=== PATIENT | female | born 1945 | race Two or more races ===

== ENCOUNTER 2020-10-14 14:53 | Emergency (ER) | payer OTHER ==
[~2020-10-14] VITALS: Ht 172.7 cm; Wt 93.0 kg
[2020-10-14] MEDS ORDERED: NORVASC2.5 M1 (15:26)
[2020-10-14] MEDS ORDERED: CARVEDILOL ER40 MG (15:26)
[2020-10-14] MEDS ORDERED: AVAPRO75 MG (15:26)
[2020-10-14] MEDS ORDERED: METFORMIN HCL500 M3 (15:27)
== END 2020-10-14 18:46 | disposition home or self-care (01) ==
LOC: ER 14:53
DX: K21.9 Gastro-esophageal reflux disease without esophagitis (principal); K44.9 Diaphragmatic hernia without obstruction or gangrene; R07.89 Other chest pain

== ENCOUNTER 2022-01-27 11:54 | Emergency (ER) | payer OTHER ==
[~2022-01-27] VITALS: Ht 172.7 cm; Wt 85.7 kg
[~2022-01-27 11:54] MED LIST: AVAPRO75 MG; CARVEDILOL ER40 MG; METFORMIN HCL500 M3; NORVASC2.5 M1
== END 2022-01-27 16:33 | disposition home or self-care (01) ==
LOC: ER 11:54
DX: K64.9 Unspecified hemorrhoids (principal); Z88.6 Allergy status to analgesic agent; Z88.1 Allergy status to other antibiotic agents

== ENCOUNTER 2022-02-28 05:40 | Day surgery (SDC) | payer OTHER ==
[~2022-02-28] VITALS: Ht 172.7 cm; Wt 83.9 kg
[2022-02-28] MEDS ORDERED: PERCOCET 5-3251 EACH PO (13:54)
== END 2022-02-28 19:45 | disposition home or self-care (01) ==
LOC: CIR.AMB 05:40
PROVIDERS: ATTEND Surgery
DX: K64.8 Other hemorrhoids (principal); Z88.8 Allergy status to other drugs, medicaments and biological substances; I10 Essential (primary) hypertension; K21.9 Gastro-esophageal reflux disease without esophagitis; E11.9 Type 2 diabetes mellitus without complications; L51.1 Stevens-Johnson syndrome

== ENCOUNTER → 2023-02-03 06:00 | Outpatient (CLI) | payer OTHER ==
[~2023-02-03] VITALS: Ht 172.7 cm; Wt 90.7 kg
[~2023-02-03 06:00] MED LIST changes: +ACID REDUCER20 M1 PO; +AMLODI PO; +CARVEDILOL25 M1 PO; +IRBESARTAN-HCT1 EAC1 PO; +PERCOCET 5-3251 EACH PO
== END | disposition home or self-care (01) ==
LOC: LAB 06:00 → SURH 02-07 09:45 → EDSTATUS 02-07 09:45 → SURH 02-07 13:00
PROVIDERS: ATTEND Surgery
DX: Z01.810 Encounter for preprocedural cardiovascular examination (principal); Z20.822 Contact with and (suspected) exposure to COVID-19; K57.30 Diverticulosis of large intestine without perforation or abscess without bleeding; R10.9 Unspecified abdominal pain; K62.5 Hemorrhage of anus and rectum; K64.2 Third degree hemorrhoids; R19.4 Change in bowel habit; K21.9 Gastro-esophageal reflux disease without esophagitis; K29.70 Gastritis, unspecified, without bleeding; R14.0 Abdominal distension (gaseous)

== ENCOUNTER 2023-04-08 08:47 | Inpatient (IN) | payer OTHER ==
[~2023-04-08] VITALS: Ht 172.7 cm; Wt 92.1 kg
[2023-04-09] MEDS ORDERED: GLUMETZA500 MG PO (09:45)
[2023-04-11] MEDS ORDERED: ROSUVASTATIN CA20 MG (08:09)
[2023-04-11] MEDS ORDERED: OMEPRAZOLE20 MG (08:09)
[2023-04-11] MEDS ORDERED: AMLODIPINE BESYL5 MG (08:09)
[2023-04-12 08:02] LABS: HEMATOCRIT 35.9 % (36.0-45.00); HEMOGLOBIN 12.2 g/dL (12.0-15.00); MEAN CELL VOLUME 91.6 fL (80.00-100.00); MEAN CORPUSCULAR HEMOGLOBIN 31.1 pg (27.00-32.0); PLATELET COUNT 186 K/uL (150-450); RED BLOOD COUNT 3.91 M/uL (4.00-6.00); RED CELL DISTRIBUTION WIDTH 13.9 % (11.5-14.5)
[2023-04-12 08:30] LABS: ALBUMIN 2.7 gm/dL (3.4-5.0); CALCIUM 8.3 mg/dL (8.5-10.1); CREATININE SERUM 0.88 mg/dL (0.55-1.02); GFR 62.47; MAGNESIUM 1.5 mg/dL (1.8-2.4); PHOSPHOROUS 2.9 mg/dL (2.5-4.9); POTASSIUM 3.31 mEq/L (3.5-5.1)
[2023-04-12 15:40] LABS: PH,URINE 5.5 (5.0-8.0); URINE APPEARANCE Clear; URINE BILIRRUBIN Negative (NEGATIVE); URINE BLOOD Negative; URINE COLOR Yellow; URINE GLUCOSE Negative (NEGATIVE); URINE LEUKOCYTE Negative; URINE NITRATE Negative; URINE PROTEIN 30 (NEGATIVE); URINE UROBILINOGEN 0.2 E.U./dl
[2023-04-12 15:44] LABS: URINE BACTERIA 14.5 uL (0.0-1933); URINE EPITHELIAL CELLS 19.1 uL (0.0-38.8); URINE WBC 14.4 uL (0.0-23.2)
[2023-04-12 16:11] LABS: URINE YEAST NEGATIVE /hpf
[2023-04-13 09:12] LABS: HEMATOCRIT 31.7 % (36.0-45.00); HEMOGLOBIN 10.8 g/dL (12.0-15.00); MEAN CELL VOLUME 91.6 fL (80.00-100.00); MEAN CORPUSCULAR HEMOGLOBIN 31.2 pg (27.00-32.0); PLATELET COUNT 143 K/uL (150-450); RED BLOOD COUNT 3.46 M/uL (4.00-6.00); RED CELL DISTRIBUTION WIDTH 14.1 % (11.5-14.5)
[2023-04-13 09:38] LABS: ALBUMIN 2.3 gm/dL (3.4-5.0); BILIRUBIN TOTAL 0.45 mg/dL (0.3-1.2); CALCIUM 8.4 mg/dL (8.5-10.1); CREATININE SERUM 0.7 mg/dL (0.55-1.02); GFR 81.36; GLOBULINA 2.6 G/DL (2.4-3.5); MAGNESIUM 2.1 mg/dL (1.8-2.4); POTASSIUM 3.19 mEq/L (3.5-5.1); TOTAL PROTEIN 4.9 gm/dL (6.4-8.2)
[2023-04-13 11:03] LABS: C-REACTIVE PROTEIN 32.6 MG/DL (0.00-0.29); PHOSPHOROUS 1.6 mg/dL (2.5-4.9)
[2023-04-14 16:18] LABS: CALCIUM 8.3 mg/dL (8.5-10.1); CREATININE SERUM 0.46 mg/dL (0.55-1.02); GFR 132.07; POTASSIUM 3.49 mEq/L (3.5-5.1)
[2023-04-15 08:01] LABS: ALBUMIN 2.2 gm/dL (3.4-5.0); BILIRUBIN TOTAL 0.39 mg/dL (0.3-1.2); CALCIUM 8.3 mg/dL (8.5-10.1); CREATININE SERUM 0.5 mg/dL (0.55-1.02); GFR 119.96; GLOBULINA 2.7 G/DL (2.4-3.5); POTASSIUM 3.55 mEq/L (3.5-5.1); TOTAL PROTEIN 4.9 gm/dL (6.4-8.2)
[2023-04-15 08:35] LABS: PHOSPHOROUS 1.2 mg/dL (2.5-4.9)
[2023-04-17 07:40] LABS: HEMATOCRIT 29.7 % (36.0-45.00); HEMOGLOBIN 9.6 g/dL (12.0-15.00); MEAN CELL VOLUME 92.5 fL (80.00-100.00); MEAN CORPUSCULAR HEMOGLOBIN 29.9 pg (27.00-32.0); MEAN CORPUSCULAR HGB CONC 32.4 g/dl (32.0-36.0); PLATELET COUNT 155 K/uL (150-450); RED BLOOD COUNT 3.22 M/uL (4.00-6.00); RED CELL DISTRIBUTION WIDTH 13.8 % (11.5-14.5)
[2023-04-17 08:11] LABS: CALCIUM 8.4 mg/dL (8.5-10.1); CREATININE SERUM 0.45 mg/dL (0.55-1.02); GFR 135.47; POTASSIUM 3.3 mEq/L (3.5-5.1)
[2023-04-20 08:17] LABS: CALCIUM 8.1 mg/dL (8.5-10.1); CREATININE SERUM 0.44 mg/dL (0.55-1.02); GFR 139.03; POTASSIUM 3.13 mEq/L (3.5-5.1)
[2023-04-20 08:56] LABS: HEMATOCRIT 29.3 % (36.0-45.00); HEMOGLOBIN 9.6 g/dL (12.0-15.00); MEAN CELL VOLUME 92.2 fL (80.00-100.00); MEAN CORPUSCULAR HEMOGLOBIN 30.2 pg (27.00-32.0); MEAN CORPUSCULAR HGB CONC 32.7 g/dl (32.0-36.0); PLATELET COUNT 236 K/uL (150-450); RED BLOOD COUNT 3.18 M/uL (4.00-6.00); RED CELL DISTRIBUTION WIDTH 13.8 % (11.5-14.5)
[2023-04-21 06:48] LABS: HEMOGLOBIN 10.1 g/dL (12.0-15.00); MEAN CELL VOLUME 90.2 fL (80.00-100.00); MEAN CORPUSCULAR HEMOGLOBIN 30.4 pg (27.00-32.0); MEAN CORPUSCULAR HGB CONC 33.8 g/dl (32.0-36.0); PLATELET COUNT 286 K/uL (150-450); RED BLOOD COUNT 3.32 M/uL (4.00-6.00); RED CELL DISTRIBUTION WIDTH 13.9 % (11.5-14.5)
[2023-04-21 07:21] LABS: ALBUMIN 2.4 gm/dL (3.4-5.0); BILIRUBIN TOTAL 0.32 mg/dL (0.3-1.2); CALCIUM 8.3 mg/dL (8.5-10.1); CREATININE SERUM 0.48 mg/dL (0.55-1.02); GFR 125.74; GLOBULINA 3.1 G/DL (2.4-3.5); POTASSIUM 3.29 mEq/L (3.5-5.1); TOTAL PROTEIN 5.5 gm/dL (6.4-8.2)
[2023-04-21 07:43] LABS: C-REACTIVE PROTEIN 16.5 MG/DL (0.00-0.29)
[2023-04-25 08:10] LABS: HEMATOCRIT 27.9 % (36.0-45.00); HEMOGLOBIN 9.2 g/dL (12.0-15.00); MEAN CELL VOLUME 91.1 fL (80.00-100.00); MEAN CORPUSCULAR HEMOGLOBIN 30.2 pg (27.00-32.0); MEAN CORPUSCULAR HGB CONC 33.1 g/dl (32.0-36.0); PLATELET COUNT 342 K/uL (150-450); RED BLOOD COUNT 3.06 M/uL (4.00-6.00); RED CELL DISTRIBUTION WIDTH 14.3 % (11.5-14.5)
[2023-04-25 08:50] LABS: CALCIUM 8.6 mg/dL (8.5-10.1); CREATININE SERUM 0.56 mg/dL (0.55-1.02); GFR 105.25; POTASSIUM 3.6 mEq/L (3.5-5.1)
[2023-04-28 08:40] LABS: HEMATOCRIT 31.4 % (36.0-45.00); HEMOGLOBIN 9.9 g/dL (12.0-15.00); MEAN CELL VOLUME 90.6 fL (80.00-100.00); MEAN CORPUSCULAR HEMOGLOBIN 28.5 pg (27.00-32.0); MEAN CORPUSCULAR HGB CONC 31.4 g/dl (32.0-36.0); RED BLOOD COUNT 3.46 M/uL (4.00-6.00); RED CELL DISTRIBUTION WIDTH 14.2 % (11.5-14.5)
[2023-04-28 09:07] LABS: CALCIUM 8.8 mg/dL (8.5-10.1); CREATININE SERUM 0.57 mg/dL (0.55-1.02); GFR 103.12; MAGNESIUM 1.7 mg/dL (1.8-2.4); PHOSPHOROUS 3.3 mg/dL (2.5-4.9); POTASSIUM 3.98 mEq/L (3.5-5.1)
[2023-04-28 09:13] LABS: C-REACTIVE PROTEIN 4.79 MG/DL (0.00-0.29)
[2023-04-28 09:38] LABS: PLATELET COUNT 396 K/uL (150-450)
[2023-05-02] MEDS ORDERED: INTESTINEX680 M1 PO (12:57)
[2023-05-02] MEDS ORDERED: PEPCID AC20 MG PO (12:57)
[2023-05-02] MEDS ORDERED: HYOSCYAMINE0.125 M1 SL (12:57)
== END 2023-05-02 22:15 | disposition home or self-care (01) | DRG 330 ==
LOC: O/R 04-11 05:32 → SURH 04-11 07:00
PROVIDERS: Internal Medicine; Internal Medicine Geriatric Medicine; Internal Medicine Infectious Disease; Surgery; ADMIT Surgery; ATTEND Surgery
PROC: 0DBP4ZZ Excision of Rectum, Percutaneous Endoscopic Approach (ICD-10-PCS; 2023-04-11)
PROC: 07BC4ZX Excision of Pelvis Lymphatic, Percutaneous Endoscopic Approach, Diagnostic (ICD-10-PCS; 2023-04-11)
PROC: 8E0Y4CZ Robotic Assisted Procedure of Lower Extremity, Percutaneous Endoscopic Approach (ICD-10-PCS; 2023-04-11)
PROC: 0DTN4ZZ Resection of Sigmoid Colon, Percutaneous Endoscopic Approach (ICD-10-PCS; principal; 2023-04-11 07:00)
PROC: 02HV33Z Insertion of Infusion Device into Superior Vena Cava, Percutaneous Approach (ICD-10-PCS; 2023-04-13)
PROC: BW21YZZ Computerized Tomography (CT Scan) of Abdomen and Pelvis using Other Contrast (ICD-10-PCS; 2023-04-17)
PROC: 0H97X0Z Drainage of Abdomen Skin with Drainage Device, External Approach (ICD-10-PCS; 2023-04-21)
PROC: BW21YZZ Computerized Tomography (CT Scan) of Abdomen and Pelvis using Other Contrast (ICD-10-PCS; 2023-04-21)
DX: K57.30 Diverticulosis of large intestine without perforation or abscess without bleeding (principal); K62.5 Hemorrhage of anus and rectum; R65.10 Systemic inflammatory response syndrome (SIRS) of non-infectious origin without acute organ dysfunction; K64.2 Third degree hemorrhoids; K63.5 Polyp of colon; N73.6 Female pelvic peritoneal adhesions (postinfective); E11.9 Type 2 diabetes mellitus without complications; Z79.4 Long term (current) use of insulin; I10 Essential (primary) hypertension; N73.9 Female pelvic inflammatory disease, unspecified; D72.829 Elevated white blood cell count, unspecified; B96.20 Unspecified Escherichia coli [E. coli] as the cause of diseases classified elsewhere; B96.5 Pseudomonas (aeruginosa) (mallei) (pseudomallei) as the cause of diseases classified elsewhere; K63.89 Other specified diseases of intestine
CPT/HCPCS: 49406; S2900; 74175